=== PATIENT | male | born 1970 | race Asian ===

== ENCOUNTER 2017-11-30 14:20 | Emergency (ER) | payer MEDICAID ==
[~2017-11-30] VITALS: Ht 172.7 cm; Wt 79.4 kg
[~2017-11-30 14:20] MED LIST: ASPIR-LOW81 MG ORAL; CLOPIDOGREL75 MG ORAL; FAZACLO100 MG ORAL; GEMFIBROZIL600 MG ORAL; GLIMEPIRIDE4 MG ORAL; LISINOPRIL20 MG ORAL; METFORMIN HCL1000 M1 ORAL; METOPROLOL SUC100 MG ORAL; ZOCOR40 MG ORAL
[2017-11-30] MEDS ORDERED: ABILIFY20 MG ORAL (14:58)
[2017-11-30] MEDS ORDERED: DEPAKOTE ER500 MG ORAL (14:58)
[2017-11-30] MEDS ORDERED: RISPERDAL2 MG ORAL (14:58)
--- NOTE | 2017-11-30 15:08 | Emergency Room Report ---
History of Present Illness General Chief Complaint: General Complaint Source: Patient, Family Member Present Illness HPI 47-year-old male, history of diabetes, hypertension, schizophrenia, on Risperdal , Abilify, Depakote, presenting to emergency room for evaluation with his mother. Mother speaks some [place]i, however mostly English, just stating that she wants her son evaluated but not giving any detail. Son is not being very cooperative, however he is calm. Took multiple attempts to convince patient to come into the emergency room and be triaged. He denies any suicidal or homicidal thoughts. Denies currently hearing any voices. I talked to patient' s sister Lyla, telephone #[phone], Lyla states that her brother has psychiatric illness, but does not know why her mother brought her in today. States that she cannot call her mom because her mom is deaf and cannot listen on the phone. States that their father should be coming in later this afternoon. She does not know of any recent agitation, suicide attempts, or had no idea if the patient was unwell. Patient is currently denying any complaints, just states that they live close by , states that he was driving with his mother and his mother just brought him here to the emergency room but he does not feel like he needs to be here. Denying any drug use. No trauma. No chest pain shortness of breath. No abdominal pain. Upon review of previous charts patient was seen in the emergency room for psychosis in the past he has not been admitted to psychiatric facility as he had improved and was picked up by his mother Allergies: Coded Allergies: NO KNOWN ALLERGIES (Unverified Allergy, Unknown, 08/14/15) Patient History Past Medical History: see triage record Past Surgical History: none Pertinent Family History: none Reviewed Nursing Documentation: PMH: Agreed; PSxH: Agreed Nursing Documentation-PMH Hx Cardiac Problems: Yes Hx Hypertension: Yes Hx Diabetes: Yes Hx Cancer: No Hx Gastrointestinal Problems: No Hx Neurological Problems: No Review of Systems All Other Systems: negative except mentioned in HPI Physical Exam Vital Signs Date Time Temp Pulse Resp B/P (MAP) Pulse Ox O2 Delivery O2 Flow Rate FiO2 11/30/17 14:54 97.5 84 20 158/100 99 Room Air 97.5 Sp02 EP Interpretation: reviewed, normal General Appearance: alert, GCS 15, non-toxic, mild distress, other - Appears slightly angry however is calm, no agitation Head: normocephalic, atraumatic Eyes: bilateral eye normal inspection, bilateral eye PERRL, bilateral eye EOMI ENT: normal ENT inspection, normal pharynx, normal voice, moist mucus membranes Neck: normal inspection, full range of motion, supple Respiratory: normal inspection, lungs clear, normal breath sounds, no respiratory distress, no retraction, no wheezing, speaking full sentences, chest symmetrical Cardiovascular #1: normal inspection, regular rate, rhythm, normal capillary refill Cardiovascular #2: 2+ radial (R), 2+ radial (L) Gastrointestinal: normal inspection, non tender, soft, non-distended, no guarding Musculoskeletal: normal inspection, back normal, normal range of motion, non- tender Neurologic: normal inspection, alert, oriented x3, responsive, motor strength/ tone normal, sensory intact, normal gait, speech normal Psychiatric: no suicidal/homicidal ideation, no delusions, other - appears slightly annoyed/angry but does not appear psychotic. Skin: normal inspection, normal color, no rash, warm/dry, well hydrated, normal turgor Medical Decision Making Diagnostic Impression: Primary Impression: Behavioral disorder ER Course 47-year-old male brought in by mom for checkup/ evaluation DDX: Well checkup, no SI/HI, pt not agitated Plan: Obtain labs, ua, ucx, CXR, EKG ER course: Patient has remained stable during ED stay. He has been calm and cooperative, not endorsing any SI or HI, not agitated Has tolerated by mouth Labs unremarkable Discussion held with the patient's parents, told them that if everything is normal in the emergency room to follow up with their PCP and psychiatrist this week. Disposition: Patient is to be discharged to home. Please note that this Emergency Department Report was dictated using [employer][email or web address] illustrator technology software, occasionally this can lead to erroneous entry secondary to interpretation by the dictation equipment EKG Diagnostic Results EP Interpretation: Yes Rate: normal Rhythm: NSR ST Segments: Q waves inferiorly, no acute ST-T changes ASA given to patient: No Chest X-ray CXR: Ordered: Yes 1 view Indication: Chest pain EP interpretation: Yes Interpretation: No consolidation, no effusion, no PTX, no acute cardiopulmonary disease Impression: No acute disease Electronically signed by Falguni Quiros MD Laboratory Tests Test 4/22/18 16:20 White Blood Count 9.3 K/UL (4.8-10.8) Red Blood Count 5.74 M/UL (4.70-6.10) Hemoglobin 17.4 G/DL (14.2-18.0) Hematocrit 50.3 % (42.0-52.0) Mean Corpuscular Volume 88 FL (80-99) Mean Corpuscular Hemoglobin 30.4 PG (27.0-31.0) Mean Corpuscular Hemoglobin Concent 34.7 G/DL (32.0-36.0) Red Cell Distribution Width 11.2 % (11.6-14.8) L Platelet Count 200 K/UL (150-450) Mean Platelet Volume 7.0 FL (6.5-10.1) Neutrophils (%) (Auto) 65.7 % (45.0-75.0) Lymphocytes (%) (Auto) 27.0 % (20.0-45.0) Monocytes (%) (Auto) 4.7 % (1.0-10.0) Eosinophils (%) (Auto) 1.6 % (0.0-3.0) Basophils (%) (Auto) 1.0 % (0.0-2.0) Sodium Level 139 MMOL/L (136-145) Potassium Level 4.2 MMOL/L (3.5-5.1) Chloride Level 104 MMOL/L (98-107) Carbon Dioxide Level 23 MMOL/L (21-32) Anion Gap 12 mmol/L (5-15) Blood Urea Nitrogen 15 mg/dL (7-18) Creatinine 0.6 MG/DL (0.55-1.30) Estimate Glomerular Filtration Rate > 60 mL/min (>60) Glucose Level 179 MG/DL (74-106) H Calcium Level 9.5 MG/DL (8.5-10.1) Total Bilirubin 0.5 MG/DL (0.2-1.0) Aspartate Amino Transferase (AST) 23 U/L (15-37) Alanine Aminotransferase (ALT) 60 U/L (12-78) Alkaline Phosphatase 77 U/L (46-116) Troponin I 0.006 ng/mL (0.000-0.056) Total Protein 7.6 G/DL (6.4-8.2) Albumin 4.1 G/DL (3.4-5.0) Globulin 3.5 g/dL Albumin/Globulin Ratio 1.2 (1.0-2.7) Salicylates Level 4.3 ug/mL (2.8-20) Acetaminophen Level < 2 MCG/ML (10-30) L Serum Alcohol < 3 mg/dL Last Vital Signs Date Time Temp Pulse Resp B/P (MAP) Pulse Ox O2 Delivery O2 Flow Rate FiO2 11/30/17 14:54 97.5 84 20 158/100 99 Room Air 97.5 Disposition: HOME, SELF-CARE Condition: Improved Falguni Quiros M.D. Nov 30, 2017 15:08
[2017-11-30 15:17] VITALS: BP 158/100
[2017-11-30 16:36] LABS: EOSINOPHILS % (AUTO) 1.6 % (0.0-3.0); HEMATOCRIT 50.3 % (42.0-52.0); HEMOGLOBIN 17.4 G/DL (14.2-18.0); MEAN CORPUSCULAR VOLUME 88 FL (80-99); MONOCYTES % (AUTO) 4.7 % (1.0-10.0); NEUTROPHILS % (AUTO) 65.7 % (45.0-75.0); PLATELET COUNT 200 K/UL (150-450); RED BLOOD COUNT 5.74 M/UL (4.70-6.10); RED CELL DISTRIBUTION WIDTH 11.2 % (11.6-14.8); WHITE BLOOD COUNT 9.3 K/UL (4.8-10.8)
[2017-11-30 16:57] LABS: ANION GAP 12 mmol/L (5-15); BLOOD UREA NITROGEN 15 mg/dL (7-18); CALCIUM 9.5 MG/DL (8.5-10.1); CARBON DIOXIDE 23 MMOL/L (21-32); CHLORIDE 104 MMOL/L (98-107); CREATININE 0.6 MG/DL (0.55-1.30); POTASSIUM 4.2 MMOL/L (3.5-5.1); SODIUM 139 MMOL/L (136-145)
[2017-11-30 17:02] LABS: ALANINE AMINOTRANSFERASE 60 U/L (12-78); ALBUMIN 4.1 G/DL (3.4-5.0); ALBUMIN/GLOBULIN RATIO 1.2 (1.0-2.7); ALKALINE PHOSPHATASE 77 U/L (46-116); ASPARTATE AMINO TRANSFERASE 23 U/L (15-37); BILIRUBIN,TOTAL 0.5 MG/DL (0.2-1.0)
[2017-11-30 17:14] VITALS: BP 150/89
--- NOTE | 2017-12-01 10:54 | Diagnostic Imaging Report ---
Indication: Shortness of breath Technique: One view of the chest Comparison: 03/14/2011 Findings: Lungs and pleural spaces are clear. The heart size is normal. No significant interim change Impression: No acute process
== END 2017-11-30 17:16 | disposition home or self-care (01) ==
LOC: EMR 16:25
DX: F91.9 Conduct disorder, unspecified (principal); F20.9 Schizophrenia, unspecified; I10 Essential (primary) hypertension; E11.9 Type 2 diabetes mellitus without complications; Z79.899 Other long term (current) drug therapy
CPT/HCPCS: 36415; 71045; 80053; 80329; 84484; 85025; 93005; 99283